=== PATIENT | male | born 1970 | race African-American/Black ===

== ENCOUNTER 2016-09-07 20:20 | Emergency (ER) | payer OTHER ==
[2016-09-07 20:43] VITALS: BP 159/102; PULSE 95; TEMP 98.8; BMI 35.9
[2016-09-07] MEDS ORDERED: KETOROLAC TROMETHAMINE 60 MG/2 ML VIAL IM ONE (21:16)
--- NOTE | 2016-09-07 21:17 | PDOC ---
History of Present Illness - General History Source: Patient Exam Limitations: No Limitations <Zoe Carmen - Last Filed: 09/07/16 21:28> - General History Source: Patient Exam Limitations: No Limitations - History of Present Illness Presenting Symptoms: Abdominal Pain <Zunilda Lockhart I - Last Filed: 09/07/16 23:14> - General Chief Complaint: Chest Pain Stated Complaint: RIGHT SHOULDER PAIN, LEFT CHEST PAIN Time Seen by Provider: 09/07/16 20:42 - History of Present Illness Initial Comments: 09/07/16 21:28 The patient is a 46 year old male, with significant past medical history of a right shoulder arthroscopy (12 hours ago), HLD, who presents today complaining of chest pain and right shoulder pain. The patient states that he had an arthroscopy this morning around 9:30 and has since experienced right shoulder pain and chest pain. He was given percocet to take after the procedure with instructions to take 1 to 2 tablets every 4-6 hours. He took 1 percocet at 5: 00pm, but did not want to take a second pill. Over the last several months had intermittent sharp chest pain occurring 4 or 5 times a day. He states that it is nonexertional and occurs mostly after eating. Denies SOB, palpitations. Denies fever, chills. Denies lightheadedness, dizziness. Allergies: none reported Social Hx:Social tobacco use, social alcohol use. Review of systems General: No fevers or chills, no weakness, no weight loss HEENT: No change in vision. No sore throat,. No ear pain CardioVascular: +chest pain. No shortness of breath Respiratory:No cough, or wheezing. Gastrointestinal: no nausea, vomiting, diarrhea or constipation, No rectal bleeding Genitourinary: No dysuria, hematuria, or frequency Musculoskeletal: +right shoulder pain. No joint or muscle pain or swelling Neurologic: No headache, vertigo, dizziness or loss of consciousness Psychiatric: nor depression Skin: No rashes or easy bruising Endocrine: no increased thirst or abnormal weight change Allergic: no skin or latex allergy All other systems reviewed and normal Physical Exam General:Well- nourished. Well-developed individual. No acute distress HEENT: Throat: Normal, tonsils normal, no erythema or exudate Neck: Supple, no meningeal signs, no lymphadenopathy Eyes::Pupils equal reactive and round, extraocular motion intact Chest: Nontender to palpation Cardiac: S1-S2 normal, regular rate and rhythm, no murmurs rubs or gallops Respiratory: Lungs clear to auscultation bilateral Abdomen: Soft, nondistended, normal bowel sounds, nontender to palpation diffusely Extremities:+Large bandage over right shoulder. On inspection the bandage is clean and dry. Bandage was not removed and shoulder not examined. Skin: No rashes Neuro: Alert and oriented x3, nonfocal exam, grossly intact, normal gait Psych: Normal mood and affect (Zoe Carmen) 09/07/16 23:11 A portion of this note was documented by scribe services under my direction. I have reviewed the details of the note, within reason, and agree with the documentation. The case summary and management plan written by me. Assessment and plan: This is a 46-year-old male who comes in complaining of right shoulder pain. Patient is postop today for right shoulder arthroscopic surgery. Patient was given Percocet but it was not made clear to him how he should take it for the pain. Patient had only taken one Percocet shortly before coming in and when it did not work right away patient came in for evaluation of pain. By the time patient got here he was feeling better. I had a discussion with the patient as to how to manage his pain with the Percocet and other medications that he had given such as Tylenol and anti-inflammatories. Patient given Toradol here in the emergency room and discharged. In addition to the shoulder. Complaint patient has had intermittent chest pain for the last year approximately. Patient said that he had some radiation of the pain from her shoulder to his chest so EKG was done which was completely normal. Patient had labs sent that were negative. 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 (Zunilda Lockhart I) Past History <Zoe Carmen - Last Filed: 09/07/16 21:28> - Past Medical History HTN: Yes - Psycho/Social/Smoking Cessation Hx Anxiety: No Suicidal Ideation: No Smoking History: Never smoked Hx Alcohol Use: No Drug/Substance Use Hx: No Substance Use Type: None <Zunilda Lockhart I - Last Filed: 09/07/16 23:14> - Past Medical History Allergies/Adverse Reactions: Allergies Allergy/AdvReac Type Severity Reaction Status Date / Time No Known Allergies Allergy Verified 09/07/16 20:34 Home Medications: Ambulatory Orders Celecoxib [Celebrex] 200 mg PO BID 09/07/16 - Vital Signs Last Vital Signs Temp Pulse Resp BP Pulse Ox 98.8 F 95 H 17 159/102 100 09/07/16 20:32 09/07/16 20:32 09/07/16 20:32 09/07/16 20:32 09/07/16 20:32 Heart Score/ECG Review - History History: Slightly suspicious - Electrocardiogram EKG: Normal - Age Age: 45-65 - Risk Factors Risk Factors Heart Score: Yes Hx Hypercholesterolemia, Yes Smoking History, Yes Hx Obesity Based on the list above the patient has:: >/=3 risk factors or Hx atherosclerotic disease - Troponin Troponin: </= normal limit - Score Heart Score - Total: 3 <Zunilda Lockhart I - Last Filed: 09/07/16 23:14> - ADDITIONAL ORDERS Additional order review: Laboratory Results 09/07/16 09/07/16 21:30 21:30 Creatine Kinase 320 H CK-MB (CK-2) 2.4 CK-MB (CK-2) Rel Index 0.8 Troponin I < 0.03 L - Medications Given in the ED: ED Medications Discontinued Medications Generic Name Dose Route Start Last Admin Trade Name Rajeevq PRN Reason Stop Dose Admin Ketorolac Tromethamine 60 mg 09/07/16 21:16 09/07/16 21:59 Toradol Injection - IM 09/07/16 21:17 Not Given ONCE ONE Ketorolac Tromethamine 30 mg 09/07/16 21:36 09/07/16 21:45 Toradol Injection - IVPUSH 09/07/16 21:37 30 mg ONCE ONE Administration *DC/Admit/Observation/Transfer <Zoe Carmen - Last Filed: 09/07/16 21:28> - Discharge Dispostion Admit: No <Zunilda Lockhart I - Last Filed: 09/07/16 23:14> Diagnosis at time of Disposition: Right shoulder pain Qualifiers: Chronicity: acute Qualified Code(s): M25.511 - Pain in right shoulder - Discharge Dispostion Disposition: HOME Condition at time of disposition: Good - Patient Instructions Additional Instructions: When you get home take one a your oxycodone. Take one every 2 hours throughout the night if needed. For the next several days can continue one every 2 hours or 2 every 4 hours which ever works best for you. If you find that you don't need one that often begin to cut back to every 6 hours. Return to the emergency department immediately with ANY new, persistent or worsening symptoms. Continue any medications as previously prescribed by your physician. You should follow up with your primary doctor as soon as possible regarding today's emergency department visit. . Please make sure your doctor reviews the results of your emergency evaluation. Thank you for coming to the Emergency Department today for your care. It was a pleasure to see you today. Please note that your evaluation is INCOMPLETE until you follow-up with your doctor.
[2016-09-07] MEDS ORDERED: KETOROLAC TROMETHAMINE 30 MG/1 ML VIAL IVPUSH ONE (21:36)
[2016-09-07] MEDS ORDERED: KETOROLAC TROMETHAMINE 30 MG/1 ML VIAL ONE (21:38)
[2016-09-07 22:08] LABS: CPK(DFH) 320 IU/L (38-174)
[2016-09-07 22:42] LABS: TROPONIN I (DFP) < 0.03 ng/ml (0.03-0.50)
--- NOTE | 2016-09-08 16:15 | EKG ---
Test Reason : Blood Pressure : / mmHG Vent. Rate : 089 BPM Atrial Rate : 089 BPM P-R Int : 174 ms QRS Dur : 098 ms QT Int : 364 ms P-R-T Axes : 030 039 017 degrees QTc Int : 442 ms NORMAL SINUS RHYTHM NORMAL ECG NO PREVIOUS ECGS AVAILABLE Confirmed by YASMIN BARRY, ALLEY ([id number]) on 09/08/2016 4:15:19 PM Referred By: La HOWELL Confirmed By:ALLEY HOFFMAN MD
== END 2016-09-07 23:30 | disposition home or self-care (01) ==
LOC: FER 20:20
PROC: 3E0333Z Introduction of Anti-inflammatory into Peripheral Vein, Percutaneous Approach (ICD-10-PCS; principal; 2016-09-07)
DX: M25.511 Pain in right shoulder (principal); Z98.890 Other specified postprocedural states; I10 Essential (primary) hypertension
CPT/HCPCS: 36415; 82550; 82553; 84484; 93005; 99283-25